=== PATIENT | female | born 1995 | race Two or more races ===

== ENCOUNTER 2016-09-09 14:18 | Emergency (ER) | payer MEDICAID ==
--- NOTE | 2016-09-09 20:25 | Emergency Room Report ---
History of Present Illness General Chief Complaint: To Be Triaged Present Illness HPI This pt. Left prior to being seen or triaged. Medical Decision Making PA Attestation Dr. Shields is my supervising Physician whom patient management has been discussed with. Diagnostic Impression: Primary Impression: Skin problem ER Course This pt. Left prior to being seen or triaged. Disposition: LEFT W/OUT BEING SEEN Condition: Unknown Referrals: [facility],REFERRING (PCP) Siomara Finch Sep 09, 2016 20:25
== END 2016-09-09 14:50 | disposition left against medical advice (07) ==
LOC: EMR 14:47
DX: Z53.21 Procedure and treatment not carried out due to patient leaving prior to being seen by health care provider (principal)